=== PATIENT | male | born 1945 | race Caucasian/White ===

== ENCOUNTER → 2017-02-27 | Outpatient (CLI) | payer OTHER ==
[2017-02-28 06:20] LABS: HEPATITIS C VIRUS ANTIBODY 0.1 s/co (0.0-0.9)
== END | disposition home or self-care (01) ==
LOC: CARD 02-25 10:30 → LAB 09:17 → CARD 09:30
PROVIDERS: Family Medicine
DX: I10 Essential (primary) hypertension (principal); R01.1 Cardiac murmur, unspecified; E55.9 Vitamin D deficiency, unspecified; I08.0 Rheumatic disorders of both mitral and aortic valves; I35.0 Nonrheumatic aortic (valve) stenosis; I07.1 Rheumatic tricuspid insufficiency; I51.7 Cardiomegaly

== ENCOUNTER → 2018-01-09 | Outpatient (CLI) | payer OTHER ==
[2018-01-09 16:13] LABS: BASO % 0.3 % (0.0-1.0); EOS # 0.1 10*3/uL (0.0-0.4); EOS % 1.3 % (1.0-4.0); HEMATOCRIT 42.2 % (42.0-52.0); HEMOGLOBIN 14.2 g/dl (14.0-18.0); LYMPH # 1.9 10*3/uL (1.3-4.4); LYMPH % 48.1 % (27.0-41.0); MEAN CELL VOLUME 94.2 fl (80.0-94.0); MEAN CORPUSCULAR HGB 31.7 pg (27.0-31.0); MEAN CORPUSCULAR HGB CONC 33.6 g/dl (33.0-37.0); MONO # 0.1 10*3/uL (0.1-1.0); MONO % 3.4 % (3.0-9.0); NEUT # 1.8 10*3/uL (2.3-7.9); NEUT % 46.4 % (47.0-73.0); PLATELET COUNT AUTOMATED 130 10*3/uL (130-400); RED BLOOD COUNT 4.48 10*6/uL (4.50-5.90); RED CELL DISTRI WIDTH 12.4 % (0-14.5); WHITE BLOOD COUNT 3.9 10*3/uL (4.8-10.8)
[2018-01-09 16:30] LABS: ALBUMIN 3.9 gm/dl (3.1-4.5); ALKALINE PHOSPHATASE 80 U/L (45-117); BILIRUBIN, DIRECT 0.2 mg/dL (0.0-0.2); BUN 16 mg/dl (7-24); CHLORIDE 104 mmol/L (98-107); CHOLESTEROL 161 mg/dL (<200); CREATININE 1.11 mg/dL (0.70-1.30); HDL CHOLESTEROL 50 mg/dl (40-60); LDL CHOLESTEROL 81 mg/dL (9-159); POTASSIUM 4.6 mmol/L (3.5-5.1); SGOT/AST 29 IU/L (3-35); SGPT/ALT 38 U/L (12-78); SODIUM 141 mmol/L (136-145); TOTAL PROTEIN 7.2 gm/dL (6.4-8.2); TRIGLYCERIDES 152 mg/dl (<150); VLDL CHOLESTEROL 30 mg/dL (6-40)
== END | disposition home or self-care (01) ==
LOC: LAB 14:57
PROVIDERS: Family Medicine
DX: E55.9 Vitamin D deficiency, unspecified (principal); I10 Essential (primary) hypertension; E78.00 Pure hypercholesterolemia, unspecified

== ENCOUNTER → 2018-04-11 | Day surgery (SDC) | payer OTHER ==
[~2018-04-11] VITALS: Ht 167.6 cm; Wt 108.9 kg
[~2018-04-11] MED LIST: ATENOLOL50 M1 PO; NORVASC10 MG PO; OMEPRAZOLE D/R20 MG PO; PROSCAR5 M1 PO; PROVENTIL HFA6.7 GM INH; QUINAPRIL40 MG PO; SYMB160 INH; TERAZOSIN HCL10 M1 PO; TYLENOL EXTRA500 MG PO; VERAPAMIL HCL240 MG PO; VITAMIN D32000 UNIT PO
--- NOTE | ~2018-04-11 | O ---
[place], [place] OPERATIVE NOTE NAME: RISSA HEWITT UNIT #: [id number] ROOM: DOCTOR: ISRAEL REYNAGA MD BIRTHDATE: [birth year] DOS: 04/11/2018 GASTROENDOSCOPIC REPORT HISTORY OF PRESENT ILLNESS: This is a 73-year-old patient who presented with dyspepsia as well as colonic screening needs. ALLERGIES: No known medication. FAMILY HISTORY: Noncontributory. PAST SURGICAL HISTORY: Lower back surgery, left hip prosthesis, and cholecystectomy. PAST MEDICAL HISTORY: Sleep apnea, hypertension, and COPD. SOCIAL HISTORY: Nonsmoker, rare alcohol consumer. PROCEDURE: Today's procedure part of investigation is panendoscopy and colonoscopy. PREMEDICATION: Versed and propofol. SCOPE: Olympus forward-viewing gastroscope Q10 video. REPORT: After putting the patient in left lateral position and application of lubricant to the scope, the scope was introduced. Thereafter, under direct visualization, advanced through the length of esophagus without difficulty. Esophagus, cervical, thoracic distally carefully examined. Gastric pouch was entered. Gastritis was noticed. Antral biopsy obtained. Duodenal bulb second and third part within normal limits. Air was suctioned out. The patient was extubated, tolerated the procedure well. IMPRESSION: Gastritis, status post biopsy, awaiting H. pylori results. PLAN AND DISCUSSION: I am going to proceed with colonoscopic evaluation. COLONOSCOPY REPORT Concerned about his colonic screening. Therefore, a colonoscopic assessment is organized. PROCEDURE: Today's procedure part of investigation is colonoscopy plus piecemeal polypectomy. PREMEDICATION: Versed and propofol. SCOPE: Olympus forward-viewing colonoscope 10L video. REPORT: After putting the patient in left lateral position and application of [place], [place] OPERATIVE NOTE NAME: RISSA HEWITT UNIT #: [id number] ROOM: DOCTOR: ISRAEL REYNAGA MD BIRTHDATE: [birth year] lubricant to rectal pouch and digital examination, scope was introduced. Thereafter, under direct visualization, advanced through the length of colon without difficulty. [id number] diverticulosis of sigmoid colon was noticed. Sessile polypoid lesion from hepatic flexure with piecemeal polypectomy was removed. Base of the cecum explored. Appendiceal orifice was photographed. Air was suctioned out. The patient was extubated and tolerated the procedure well. IMPRESSION: 1. Sessile colonic polyp, hepatic flexure, status post piecemeal polypectomy. 2. Diverticulosis, [id number] degree. PLAN: High fiber fruit diet. ACTIVITY: Ad anand. FOLLOWUP: Routinely with you in office, p.r.n. visit with us in [facility]. Follow-up colonoscopy in 10 years unless patient has symptoms for which follow-up should be sooner. Thank you for your kind referral. ISRAEL REYNAGA MD CM:OPRECORD:OPERATIVE NOTE [id number] ISRAEL REYNAGA MD 05/05/18 1756 interface
[2018-04-11 14:00] VITALS: BP 117/84
[2018-04-11 15:45] VITALS: BP 120/69
[2018-04-11 16:00] VITALS: BP 124/74
[2018-04-11 16:15] VITALS: BP 120/87
== END | disposition home or self-care (01) ==
LOC: SDC 04-07 09:30
DX: Z12.11 Encounter for screening for malignant neoplasm of colon (principal); K63.5 Polyp of colon; K57.30 Diverticulosis of large intestine without perforation or abscess without bleeding; K29.70 Gastritis, unspecified, without bleeding; I10 Essential (primary) hypertension; J44.9 Chronic obstructive pulmonary disease, unspecified; G47.33 Obstructive sleep apnea (adult) (pediatric); K21.9 Gastro-esophageal reflux disease without esophagitis; F41.9 Anxiety disorder, unspecified; Z90.49 Acquired absence of other specified parts of digestive tract; Z98.890 Other specified postprocedural states; Z79.899 Other long term (current) drug therapy; Z96.642 Presence of left artificial hip joint

== ENCOUNTER → 2018-11-05 | Outpatient (CLI) | payer OTHER ==
[2018-11-05 15:00] LABS: BASO % 0.3 % (0.0-1.0); EOS % 1.1 % (1.0-4.0); HEMATOCRIT 40.3 % (42.0-52.0); LYMPH # 1.8 10*3/uL (1.3-4.4); LYMPH % 48.9 % (27.0-41.0); MEAN CELL VOLUME 93.9 fl (80.0-94.0); MEAN CORPUSCULAR HGB 32.6 pg (27.0-31.0); MEAN CORPUSCULAR HGB CONC 34.7 g/dl (33.0-37.0); MEAN PLATELET VOLUME 11.1 fl (9.6-12.3); MONO # 0.1 10*3/uL (0.1-1.0); MONO % 3.5 % (3.0-9.0); NEUT # 1.7 10*3/uL (2.3-7.9); NEUT % 45.9 % (47.0-73.0); PLATELET COUNT AUTOMATED 110 10*3/uL (130-400); RED BLOOD COUNT 4.29 10*6/uL (4.50-5.90); RED CELL DISTRI WIDTH 12.8 % (0-14.5); WHITE BLOOD COUNT 3.7 10*3/uL (4.8-10.8)
[2018-11-05 15:21] LABS: ALBUMIN 3.7 gm/dl (3.1-4.5); ALKALINE PHOSPHATASE 60 U/L (45-117); BILIRUBIN, DIRECT 0.2 mg/dL (0.0-0.2); BUN 15 mg/dl (7-24); CHLORIDE 109 mmol/L (98-107); CREATININE 1.03 mg/dL (0.70-1.30); POTASSIUM 4.2 mmol/L (3.5-5.1); SGOT/AST 8 IU/L (3-35); SGPT/ALT 25 U/L (12-78); SODIUM 143 mmol/L (136-145); TOTAL PROTEIN 6.7 gm/dL (6.4-8.2)
== END | disposition home or self-care (01) ==
PROVIDERS: Family Medicine
DX: M48.061 Spinal stenosis, lumbar region without neurogenic claudication (principal); M25.561 Pain in right knee; M25.551 Pain in right hip; M25.461 Effusion, right knee

== ENCOUNTER → 2018-11-19 | Outpatient (CLI) | payer MEDICARE ==
[2018-11-19 15:01] LABS: BASO % 0.2 % (0.0-1.0); EOS # 0.1 10*3/uL (0.0-0.4); EOS % 1.2 % (1.0-4.0); HEMATOCRIT 41.8 % (42.0-52.0); HEMOGLOBIN 14.3 g/dl (14.0-18.0); LYMPH # 1.8 10*3/uL (1.3-4.4); LYMPH % 45.5 % (27.0-41.0); MEAN CORPUSCULAR HGB 32.5 pg (27.0-31.0); MEAN CORPUSCULAR HGB CONC 34.2 g/dl (33.0-37.0); MEAN PLATELET VOLUME 10.6 fl (9.6-12.3); MONO # 0.2 10*3/uL (0.1-1.0); MONO % 4.7 % (3.0-9.0); NEUT # 1.9 10*3/uL (2.3-7.9); NEUT % 47.9 % (47.0-73.0); PLATELET COUNT AUTOMATED 126 10*3/uL (130-400); RED CELL DISTRI WIDTH 12.6 % (0-14.5)
== END | disposition home or self-care (01) ==
LOC: LAB 14:29
PROVIDERS: Family Medicine
DX: D72.829 Elevated white blood cell count, unspecified (principal)

== ENCOUNTER → 2019-03-25 | Outpatient (CLI) | payer MEDICARE ==
[2019-03-25 14:07] LABS: BASO % 0.3 % (0.0-1.0); EOS % 1.1 % (1.0-4.0); HEMATOCRIT 39.9 % (42.0-52.0); HEMOGLOBIN 13.3 g/dl (14.0-18.0); LYMPH # 1.9 10*3/uL (1.3-4.4); LYMPH % 50.4 % (27.0-41.0); MEAN CELL VOLUME 98.8 fl (80.0-94.0); MEAN CORPUSCULAR HGB 32.9 pg (27.0-31.0); MEAN CORPUSCULAR HGB CONC 33.3 g/dl (33.0-37.0); MONO # 0.2 10*3/uL (0.1-1.0); MONO % 4.8 % (3.0-9.0); NEUT # 1.6 10*3/uL (2.3-7.9); NEUT % 43.1 % (47.0-73.0); PLATELET COUNT AUTOMATED 117 10*3/uL (130-400); RED BLOOD COUNT 4.04 10*6/uL (4.50-5.90); RED CELL DISTRI WIDTH 13.2 % (0-14.5); WHITE BLOOD COUNT 3.8 10*3/uL (4.8-10.8)
[2019-03-25 14:28] LABS: ALBUMIN 3.8 gm/dl (3.1-4.5); ALKALINE PHOSPHATASE 68 U/L (45-117); BILIRUBIN, DIRECT 0.2 mg/dL (0.0-0.2); BUN 17 mg/dl (7-24); CHLORIDE 106 mmol/L (98-107); CREATININE 1.21 mg/dL (0.70-1.30); POTASSIUM 4.4 mmol/L (3.5-5.1); SGOT/AST 27 IU/L (3-35); SGPT/ALT 29 U/L (12-78); SODIUM 140 mmol/L (136-145); TOTAL PROTEIN 6.6 gm/dL (6.4-8.2)
== END | disposition home or self-care (01) ==
LOC: LAB 13:30
PROVIDERS: Family Medicine
DX: Z12.5 Encounter for screening for malignant neoplasm of prostate (principal); I10 Essential (primary) hypertension; R73.9 Hyperglycemia, unspecified

== ENCOUNTER → 2019-04-01 | Outpatient (CLI) | payer MEDICARE ==
--- NOTE | ~2019-04-01 | PF ---
[place], [place] PULMONARY FUNCTION TEST [id number] UNIT #: [id number] ROOM: DOCTOR: PATRICK GO MD,WILLA BIRTHDATE: [birth year] DOS: 04/01/2019 PULMONARY FUNCTION TEST ORDERED BY: Dr. Edmundo Perkins. HISTORY: The patient is a 74-year-old male, height of 66 inches, weight of 240 pounds, BMI 38.7 with symptoms of shortness of breath, and nonproductive cough, history of past tobacco use. SPIROMETRY: The patient's FVC 2.67 liters, 73% predicted value. The FEV1 of 2.15 liters as 78% predicted value. The ratio of FEV1/FVC 81% post-bronchodilator. No changes of any significant noted. The flow volume loop suggestive of mild obstructive airway pattern, otherwise normal. The lung volume, thoracic gas volume recorded at 68%, residual volume of 79%, total lung capacity of 72%. The patient's lung diffusion recorded at 72%, mildly decreased without correction of carbon monoxide hemoglobin value. Airway resistance and passive conductance noted mildly abnormal with improvement post-bronchodilator test. 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 Clinical correlation will be advised. WILLA NGUYEN MD CM:PFREPORT:PULMONARY FUNCTION TEST [id number] WILLA GO MD
== END | disposition home or self-care (01) ==
LOC: LAB 12:08
PROVIDERS: Family Medicine
DX: D75.89 Other specified diseases of blood and blood-forming organs (principal); R06.02 Shortness of breath

== ENCOUNTER → 2019-06-08 | Outpatient (CLI) | payer MEDICARE ==
[2019-06-08 11:43] LABS: BASO % 0.5 % (0.0-1.0); HEMATOCRIT 40.7 % (42.0-52.0); HEMOGLOBIN 13.7 g/dl (14.0-18.0); LYMPH # 2.1 10*3/uL (1.3-4.4); MEAN CELL VOLUME 95.1 fl (80.0-94.0); MEAN CORPUSCULAR HGB CONC 33.7 g/dl (33.0-37.0); MEAN PLATELET VOLUME 11.3 fl (9.6-12.3); MONO # 0.2 10*3/uL (0.1-1.0); MONO % 4.1 % (3.0-9.0); NEUT # 1.6 10*3/uL (2.3-7.9); NEUT % 41.1 % (47.0-73.0); PLATELET COUNT AUTOMATED 104 10*3/uL (130-400); RED BLOOD COUNT 4.28 10*6/uL (4.50-5.90); RED CELL DISTRI WIDTH 12.6 % (0-14.5); WHITE BLOOD COUNT 3.9 10*3/uL (4.8-10.8)
[2019-06-08 12:19] LABS: ALBUMIN 3.9 gm/dl (3.1-4.5); ALKALINE PHOSPHATASE 62 U/L (45-117); BUN 15 mg/dl (7-24); CHLORIDE 109 mmol/L (98-107); CREATININE 1.01 mg/dL (0.70-1.30); LDH 226 U/L (87-241); POTASSIUM 4.2 mmol/L (3.5-5.1); SGOT/AST 23 IU/L (3-35); SGPT/ALT 25 U/L (12-78); SODIUM 142 mmol/L (136-145); TOTAL PROTEIN 6.7 gm/dL (6.4-8.2)
== END | disposition home or self-care (01) ==
LOC: LAB 11:09
PROVIDERS: Internal Medicine Hematology & Oncology
DX: C91.40 Hairy cell leukemia not having achieved remission (principal)

== ENCOUNTER → 2019-09-28 | Outpatient (CLI) | payer MEDICARE | END | disposition home or self-care (01) | LOC: US 03:44 | DX: R16.1 Splenomegaly, not elsewhere classified (principal); I10 Essential (primary) hypertension; J44.9 Chronic obstructive pulmonary disease, unspecified; Z90.49 Acquired absence of other specified parts of digestive tract ==

== ENCOUNTER → 2019-10-21 | Outpatient (CLI) | payer MEDICARE ==
[2019-10-21 09:45] LABS: CREATININE 1.18 mg/dL (0.70-1.30)
== END | disposition home or self-care (01) ==
LOC: LAB 01:06 → CT 01:06
PROVIDERS: Radiology Diagnostic Radiology
DX: N20.0 Calculus of kidney (principal); N28.9 Disorder of kidney and ureter, unspecified; Z90.49 Acquired absence of other specified parts of digestive tract

== ENCOUNTER → 2019-12-14 | Outpatient (CLI) | payer MEDICARE ==
[2019-12-14 13:21] LABS: BASO % 0.2 % (0.0-1.0); EOS # 0.1 10*3/uL (0.0-0.4); EOS % 1.4 % (1.0-4.0); HEMATOCRIT 41.9 % (42.0-52.0); HEMOGLOBIN 14.2 g/dl (14.0-18.0); LYMPH # 2.1 10*3/uL (1.3-4.4); LYMPH % 49.9 % (27.0-41.0); MEAN CORPUSCULAR HGB 32.9 pg (27.0-31.0); MEAN CORPUSCULAR HGB CONC 33.9 g/dl (33.0-37.0); MONO # 0.2 10*3/uL (0.1-1.0); MONO % 3.8 % (3.0-9.0); NEUT # 1.9 10*3/uL (2.3-7.9); NEUT % 44.2 % (47.0-73.0); PLATELET COUNT AUTOMATED 116 10*3/uL (130-400); RED BLOOD COUNT 4.32 10*6/uL (4.50-5.90); WHITE BLOOD COUNT 4.2 10*3/uL (4.8-10.8)
[2019-12-14 13:44] LABS: ALKALINE PHOSPHATASE 55 U/L (45-117); BUN 17 mg/dl (7-24); CHLORIDE 110 mmol/L (98-107); CREATININE 1.01 mg/dL (0.70-1.30); LDH 247 U/L (87-241); POTASSIUM 4.5 mmol/L (3.5-5.1); SGOT/AST 21 IU/L (3-35); SGPT/ALT 31 U/L (12-78); SODIUM 143 mmol/L (136-145); TOTAL PROTEIN 6.8 gm/dL (6.4-8.2)
== END | disposition home or self-care (01) ==
LOC: LAB 12:34
PROVIDERS: Internal Medicine Hematology & Oncology
DX: C91.40 Hairy cell leukemia not having achieved remission (principal); D69.6 Thrombocytopenia, unspecified

== ENCOUNTER → 2020-03-31 | Outpatient (CLI) | payer MEDICARE ==
[2020-03-31 12:58] LABS: BASO % 0.2 % (0.0-1.0); EOS # 0.1 10*3/uL (0.0-0.4); EOS % 1.7 % (1.0-4.0); HEMATOCRIT 42.1 % (42.0-52.0); LYMPH # 2.1 10*3/uL (1.3-4.4); LYMPH % 51.6 % (27.0-41.0); MEAN CELL VOLUME 95.9 fl (80.0-94.0); MEAN CORPUSCULAR HGB 32.3 pg (27.0-31.0); MEAN CORPUSCULAR HGB CONC 33.7 g/dl (33.0-37.0); MEAN PLATELET VOLUME 11.1 fl (9.6-12.3); MONO # 0.2 10*3/uL (0.1-1.0); MONO % 4.6 % (3.0-9.0); NEUT # 1.7 10*3/uL (2.3-7.9); NEUT % 41.4 % (47.0-73.0); PLATELET COUNT AUTOMATED 112 10*3/uL (130-400); RED BLOOD COUNT 4.39 10*6/uL (4.50-5.90); WHITE BLOOD COUNT 4.1 10*3/uL (4.8-10.8)
== END | disposition home or self-care (01) ==
LOC: LAB 12:14
PROVIDERS: Internal Medicine Hematology & Oncology
DX: C91.40 Hairy cell leukemia not having achieved remission (principal); D69.6 Thrombocytopenia, unspecified

== ENCOUNTER → 2020-05-16 | Outpatient (CLI) | payer MEDICARE ==
[2020-05-16 11:51] LABS: BASO % 0.5 % (0.0-1.0); EOS # 0.1 10*3/uL (0.0-0.4); EOS % 1.3 % (1.0-4.0); HEMATOCRIT 40.1 % (42.0-52.0); LYMPH % 51.4 % (27.0-41.0); MEAN CELL VOLUME 96.6 fl (80.0-94.0); MEAN CORPUSCULAR HGB 31.8 pg (27.0-31.0); MEAN CORPUSCULAR HGB CONC 32.9 g/dl (33.0-37.0); MONO # 0.2 10*3/uL (0.1-1.0); MONO % 4.3 % (3.0-9.0); NEUT # 1.7 10*3/uL (2.3-7.9); NEUT % 42.2 % (47.0-73.0); PLATELET COUNT AUTOMATED 108 10*3/uL (130-400); RED BLOOD COUNT 4.15 10*6/uL (4.50-5.90); WHITE BLOOD COUNT 3.9 10*3/uL (4.8-10.8)
[2020-05-16 12:14] LABS: ALBUMIN 3.8 gm/dl (3.1-4.5); ALKALINE PHOSPHATASE 59 U/L (45-117); BUN 21 mg/dl (7-24); CHLORIDE 109 mmol/L (98-107); CREATININE 1.21 mg/dL (0.70-1.30); LDH 241 U/L (87-241); POTASSIUM 4.4 mmol/L (3.5-5.1); SGOT/AST 24 IU/L (3-35); SGPT/ALT 31 U/L (12-78); SODIUM 141 mmol/L (136-145); TOTAL PROTEIN 6.6 gm/dL (6.4-8.2)
== END | disposition home or self-care (01) ==
LOC: LAB 11:04
PROVIDERS: Internal Medicine Hematology & Oncology
DX: C91.40 Hairy cell leukemia not having achieved remission (principal); D69.6 Thrombocytopenia, unspecified

== ENCOUNTER → 2020-07-01 | Outpatient (CLI) | payer MEDICARE ==
[2020-07-01 14:33] LABS: ALBUMIN 3.9 gm/dl (3.1-4.5); ALKALINE PHOSPHATASE 58 U/L (45-117); BUN 21 mg/dl (7-24); CHLORIDE 111 mmol/L (98-107); CREATININE 1.02 mg/dL (0.70-1.30); POTASSIUM 4.4 mmol/L (3.5-5.1); SGOT/AST 24 IU/L (3-35); SGPT/ALT 38 U/L (12-78); SODIUM 140 mmol/L (136-145); TOTAL PROTEIN 6.8 gm/dL (6.4-8.2)
== END | disposition home or self-care (01) ==
LOC: LAB 13:45
PROVIDERS: Family Medicine
DX: E83.51 Hypocalcemia (principal)

== ENCOUNTER → 2020-08-12 | Outpatient (CLI) | payer MEDICARE ==
[2020-08-12 13:54] LABS: BASO % 0.2 % (0.0-1.0); EOS # 0.1 10*3/uL (0.0-0.4); EOS % 1.2 % (1.0-4.0); HEMATOCRIT 41.1 % (42.0-52.0); LYMPH % 50.9 % (27.0-41.0); MEAN CELL VOLUME 96.9 fl (80.0-94.0); MEAN CORPUSCULAR HGB 31.6 pg (27.0-31.0); MEAN CORPUSCULAR HGB CONC 32.6 g/dl (33.0-37.0); MONO # 0.2 10*3/uL (0.1-1.0); NEUT # 1.7 10*3/uL (2.3-7.9); NEUT % 42.2 % (47.0-73.0); PLATELET COUNT AUTOMATED 116 10*3/uL (130-400); RED BLOOD COUNT 4.24 10*6/uL (4.50-5.90); RED CELL DISTRI WIDTH 13.2 % (0-14.5)
[2020-08-12 14:23] LABS: ALBUMIN 3.9 gm/dl (3.1-4.5); ALKALINE PHOSPHATASE 59 U/L (45-117); BILIRUBIN, DIRECT 0.2 mg/dL (0.0-0.2); BUN 18 mg/dl (7-24); CHLORIDE 111 mmol/L (98-107); CREATININE 1.12 mg/dL (0.70-1.30); POTASSIUM 4.6 mmol/L (3.5-5.1); SGOT/AST 26 IU/L (3-35); SGPT/ALT 34 U/L (12-78); SODIUM 141 mmol/L (136-145); TOTAL PROTEIN 6.8 gm/dL (6.4-8.2)
== END | disposition home or self-care (01) ==
LOC: LAB 13:20
PROVIDERS: ATTEND Family Medicine
DX: M43.16 Spondylolisthesis, lumbar region (principal); I10 Essential (primary) hypertension; E55.9 Vitamin D deficiency, unspecified; Z98.890 Other specified postprocedural states

== ENCOUNTER → 2020-11-14 | Outpatient (CLI) | payer MEDICARE ==
[2020-11-14 14:21] LABS: BASO % 0.2 % (0.0-1.0); HEMATOCRIT 41.9 % (42.0-52.0); LYMPH # 1.9 10*3/uL (1.3-4.4); LYMPH % 44.6 % (27.0-41.0); MEAN CELL VOLUME 95.4 fl (80.0-94.0); MEAN CORPUSCULAR HGB 32.1 pg (27.0-31.0); MEAN CORPUSCULAR HGB CONC 33.7 g/dl (33.0-37.0); MONO # 0.2 10*3/uL (0.1-1.0); MONO % 4.3 % (3.0-9.0); NEUT # 2.1 10*3/uL (2.3-7.9); NEUT % 49.4 % (47.0-73.0); PLATELET COUNT AUTOMATED 125 10*3/uL (130-400); RED BLOOD COUNT 4.39 10*6/uL (4.50-5.90); WHITE BLOOD COUNT 4.2 10*3/uL (4.8-10.8)
[2020-11-14 14:39] LABS: ALBUMIN 3.9 gm/dl (3.1-4.5); ALKALINE PHOSPHATASE 60 U/L (45-117); BUN 23 mg/dl (7-24); CHLORIDE 110 mmol/L (98-107); CREATININE 1.04 mg/dL (0.70-1.30); LDH 259 U/L (87-241); POTASSIUM 4.6 mmol/L (3.5-5.1); SGOT/AST 23 IU/L (3-35); SGPT/ALT 30 U/L (12-78); SODIUM 143 mmol/L (136-145); TOTAL PROTEIN 6.8 gm/dL (6.4-8.2)
== END | disposition home or self-care (01) ==
LOC: LAB 13:43
PROVIDERS: ATTEND Internal Medicine Hematology & Oncology
DX: C91.40 Hairy cell leukemia not having achieved remission (principal); D69.6 Thrombocytopenia, unspecified

== ENCOUNTER → 2021-01-13 | Outpatient (CLI) | payer MEDICARE | END | disposition home or self-care (01) | LOC: RESCLI 06:49 | PROVIDERS: ATTEND Internal Medicine | DX: I10 Essential (primary) hypertension (principal); R00.1 Bradycardia, unspecified; I45.10 Unspecified right bundle-branch block; E78.5 Hyperlipidemia, unspecified; N40.0 Benign prostatic hyperplasia without lower urinary tract symptoms; K21.9 Gastro-esophageal reflux disease without esophagitis; J44.9 Chronic obstructive pulmonary disease, unspecified; C91.41 Hairy cell leukemia, in remission; E55.9 Vitamin D deficiency, unspecified; R42 Dizziness and giddiness; R60.0 Localized edema; R01.1 Cardiac murmur, unspecified; Z79.899 Other long term (current) drug therapy ==

== ENCOUNTER → 2021-01-23 | Outpatient (CLI) | payer MEDICARE ==
[2021-01-23 14:45] LABS: BASO % 0.3 % (0.0-1.0); EOS # 0.1 10*3/uL (0.0-0.4); EOS % 1.6 % (1.0-4.0); HEMATOCRIT 41.6 % (42.0-52.0); LYMPH # 1.8 10*3/uL (1.3-4.4); LYMPH % 48.3 % (27.0-41.0); MEAN CELL VOLUME 95.9 fl (80.0-94.0); MEAN CORPUSCULAR HGB CONC 33.4 g/dl (33.0-37.0); MEAN PLATELET VOLUME 10.5 fl (9.6-12.3); MONO # 0.2 10*3/uL (0.1-1.0); MONO % 4.7 % (3.0-9.0); NEUT # 1.7 10*3/uL (2.3-7.9); NEUT % 44.6 % (47.0-73.0); PLATELET COUNT AUTOMATED 118 10*3/uL (130-400); RED BLOOD COUNT 4.34 10*6/uL (4.50-5.90); RED CELL DISTRI WIDTH 13.1 % (0-14.5); WHITE BLOOD COUNT 3.8 10*3/uL (4.8-10.8)
[2021-01-23 15:15] LABS: ALBUMIN 3.9 gm/dl (3.1-4.5); ALKALINE PHOSPHATASE 59 U/L (45-117); BUN 17 mg/dl (7-24); CHLORIDE 108 mmol/L (98-107); CHOLESTEROL 174 mg/dL (<200); CREATININE 1.08 mg/dL (0.70-1.30); HDL CHOLESTEROL 65 mg/dl (40-60); LDL CHOLESTEROL 89 mg/dL (9-159); POTASSIUM 4.5 mmol/L (3.5-5.1); SGOT/AST 26 IU/L (3-35); SGPT/ALT 37 U/L (12-78); SODIUM 142 mmol/L (136-145); TOTAL PROTEIN 6.9 gm/dL (6.4-8.2); TRIGLYCERIDES 99 mg/dl (<150); VLDL CHOLESTEROL 20 mg/dL (6-40)
== END | disposition home or self-care (01) ==
LOC: LAB 14:22
PROVIDERS: Internal Medicine; ATTEND Internal Medicine Nephrology
DX: I10 Essential (primary) hypertension (principal); E78.5 Hyperlipidemia, unspecified; E55.9 Vitamin D deficiency, unspecified

== ENCOUNTER → 2021-01-24 | Outpatient (CLI) | payer MEDICARE | END | disposition home or self-care (01) | LOC: CARD 01:08 | PROVIDERS: ATTEND Internal Medicine | DX: R00.1 Bradycardia, unspecified (principal); I10 Essential (primary) hypertension; R60.0 Localized edema ==

== ENCOUNTER → 2021-02-17 | Outpatient (CLI) | payer MEDICARE | END | disposition home or self-care (01) | LOC: RESCLI 00:58 | PROVIDERS: ATTEND Family Medicine | DX: I10 Essential (primary) hypertension (principal); E78.5 Hyperlipidemia, unspecified; N40.0 Benign prostatic hyperplasia without lower urinary tract symptoms; K21.9 Gastro-esophageal reflux disease without esophagitis; J44.9 Chronic obstructive pulmonary disease, unspecified; C91.41 Hairy cell leukemia, in remission; E55.9 Vitamin D deficiency, unspecified; R42 Dizziness and giddiness; R60.0 Localized edema; R01.1 Cardiac murmur, unspecified; M15.9 Polyosteoarthritis, unspecified; Z79.899 Other long term (current) drug therapy; Z90.49 Acquired absence of other specified parts of digestive tract; Z98.890 Other specified postprocedural states ==

== ENCOUNTER → 2021-08-11 | Outpatient (CLI) | payer MEDICARE | END | disposition home or self-care (01) | LOC: RAD 12:41 | PROVIDERS: ATTEND Chiropractor | DX: M43.07 Spondylolysis, lumbosacral region (principal); M51.37 Other intervertebral disc degeneration, lumbosacral region; M43.26 Fusion of spine, lumbar region ==

== ENCOUNTER 2021-08-20 19:23 | Emergency (ER) | payer MEDICARE ==
[2021-08-20 20:42] LABS: BASO % 0.2 % (0.0-1.0); EOS % 0.2 % (1.0-4.0); HEMATOCRIT 40.2 % (42.0-52.0); LYMPH # 1.2 10*3/uL (1.3-4.4); LYMPH % 26.5 % (27.0-41.0); MEAN CELL VOLUME 96.4 fl (80.0-94.0); MEAN CORPUSCULAR HGB 31.9 pg (27.0-31.0); MEAN CORPUSCULAR HGB CONC 33.1 g/dl (33.0-37.0); MEAN PLATELET VOLUME 11.6 fl (9.6-12.3); MONO # 0.3 10*3/uL (0.1-1.0); MONO % 6.5 % (3.0-9.0); NEUT % 66.2 % (47.0-73.0); PLATELET COUNT AUTOMATED 107 10*3/uL (130-400); RED BLOOD COUNT 4.17 10*6/uL (4.50-5.90); RED CELL DISTRI WIDTH 13.2 % (0-14.5); WHITE BLOOD COUNT 4.5 10*3/uL (4.8-10.8)
[2021-08-20 20:52] LABS: ACT PARTIAL THROMBO TIME 26.4 SECONDS (20.0-32.1); INTERNATIONAL NORM RATIO 1.1 (2.0-3.5)
[2021-08-20 20:58] LABS: ALBUMIN 3.9 gm/dl (3.1-4.5); ALKALINE PHOSPHATASE 71 U/L (45-117); BUN 7 mg/dl (7-24); CHLORIDE 107 mmol/L (98-107); CPK 321 U/L (39-308); CREATININE 0.92 mg/dL (0.70-1.30); POTASSIUM 3.7 mmol/L (3.5-5.1); SGOT/AST 29 IU/L (3-35); SGPT/ALT 34 U/L (12-78); SODIUM 139 mmol/L (136-145); TOTAL PROTEIN 6.8 gm/dL (6.4-8.2)
[2021-08-20 21:03] LABS: CKMB 5.3 ng/ml (0.5-3.6)
[2021-08-20 21:10] LABS: BILIRUBIN Negative (Negative); BLOOD 1+ (Negative); CLARITY Clear (Clear); COLOR Yellow (Yellow); GLUCOSE Negative (Negative); KETONE Trace (Negative); LEUKO ESTERASE Negative (Negative); NITRITE Negative (Negative); SPECIFIC GRAVITY <= 1.005 (1.001-1.030)
[2021-08-20 21:18] LABS: BACTERIA 1+; EPITHELIAL CELLS 0-2; WBC 0-2 wbc/hpf (0-5)
[2021-08-20 21:19] LABS: MUCOUS TRACE
== END 2021-08-20 23:21 | disposition short-term general hospital (02) ==
LOC: ED 19:23
PROVIDERS: Emergency Medicine
DX: I62.9 Nontraumatic intracranial hemorrhage, unspecified (principal)

== ENCOUNTER → 2021-12-12 | Outpatient (CLI) | payer MEDICARE ==
[2021-12-12 13:55] LABS: BASO % 0.4 % (0.0-1.0); EOS % 0.4 % (1.0-4.0); HEMATOCRIT 40.6 % (42.0-52.0); LYMPH # 1.2 10*3/uL (1.3-4.4); LYMPH % 43.7 % (27.0-41.0); MEAN CELL VOLUME 94.2 fl (80.0-94.0); MEAN PLATELET VOLUME 10.3 fl (9.6-12.3); MONO # 0.2 10*3/uL (0.1-1.0); MONO % 5.4 % (3.0-9.0); NEUT # 1.4 10*3/uL (2.3-7.9); NEUT % 49.4 % (47.0-73.0); PLATELET COUNT AUTOMATED 116 10*3/uL (130-400); RED BLOOD COUNT 4.31 10*6/uL (4.50-5.90); RED CELL DISTRI WIDTH 13.3 % (0-14.5); WHITE BLOOD COUNT 2.8 10*3/uL (4.8-10.8)
[2021-12-12 14:21] LABS: ALBUMIN 3.7 gm/dl (3.1-4.5); BUN 16 mg/dl (7-24); CHLORIDE 109 mmol/L (98-107); CREATININE 0.86 mg/dL (0.70-1.30); POTASSIUM 4.2 mmol/L (3.5-5.1); SGOT/AST 31 IU/L (3-35); SGPT/ALT 36 U/L (12-78); SODIUM 141 mmol/L (136-145); TOTAL PROTEIN 6.7 gm/dL (6.4-8.2)
[2021-12-12 14:36] LABS: ALKALINE PHOSPHATASE 76 U/L (45-117)
== END | disposition home or self-care (01) ==
LOC: LAB 13:40
PROVIDERS: ATTEND Internal Medicine Hematology & Oncology
DX: C91.40 Hairy cell leukemia not having achieved remission (principal); D69.6 Thrombocytopenia, unspecified

== ENCOUNTER → 2022-07-17 | Outpatient (CLI) | payer MEDICARE ==
[2022-07-17 12:59] LABS: BASO % 0.3 % (0.0-1.0); EOS % 0.9 % (1.0-4.0); LYMPH # 1.7 10*3/uL (1.3-4.4); LYMPH % 47.7 % (27.0-41.0); MEAN CELL VOLUME 97.7 fl (80.0-94.0); MEAN CORPUSCULAR HGB 32.6 pg (27.0-31.0); MEAN CORPUSCULAR HGB CONC 33.4 g/dl (33.0-37.0); MEAN PLATELET VOLUME 10.9 fl (9.6-12.3); MONO # 0.2 10*3/uL (0.1-1.0); NEUT # 1.6 10*3/uL (2.3-7.9); NEUT % 44.8 % (47.0-73.0); PLATELET COUNT AUTOMATED 96 10*3/uL (130-400); RED BLOOD COUNT 3.89 10*6/uL (4.50-5.90); RED CELL DISTRI WIDTH 13.1 % (0-14.5); WHITE BLOOD COUNT 3.5 10*3/uL (4.8-10.8)
== END | disposition home or self-care (01) ==
LOC: LAB 12:27
PROVIDERS: ATTEND Internal Medicine Hematology & Oncology
DX: C91.40 Hairy cell leukemia not having achieved remission (principal); D69.6 Thrombocytopenia, unspecified

== ENCOUNTER → 2022-08-08 | Outpatient (CLI) | payer MEDICARE ==
[2022-08-08 13:09] LABS: EOS % 0.9 % (1.0-4.0); HEMATOCRIT 39.2 % (42.0-52.0); LYMPH # 1.8 10*3/uL (1.3-4.4); LYMPH % 54.3 % (27.0-41.0); MEAN CORPUSCULAR HGB 33.2 pg (27.0-31.0); MEAN CORPUSCULAR HGB CONC 34.2 g/dl (33.0-37.0); MEAN PLATELET VOLUME 11.1 fl (9.6-12.3); MONO # 0.2 10*3/uL (0.1-1.0); MONO % 4.6 % (3.0-9.0); NEUT # 1.3 10*3/uL (2.3-7.9); NEUT % 39.9 % (47.0-73.0); PLATELET COUNT AUTOMATED 106 10*3/uL (130-400); RED BLOOD COUNT 4.04 10*6/uL (4.50-5.90); RED CELL DISTRI WIDTH 12.8 % (0-14.5); WHITE BLOOD COUNT 3.2 10*3/uL (4.8-10.8)
[2022-08-08 13:24] LABS: ALKALINE PHOSPHATASE 60 U/L (45-117); BUN 14 mg/dl (7-24); CHLORIDE 111 mmol/L (98-107); CREATININE 1.01 mg/dL (0.70-1.30); POTASSIUM 4.3 mmol/L (3.5-5.1); SGOT/AST 22 IU/L (3-35); SGPT/ALT 26 U/L (12-78); SODIUM 143 mmol/L (136-145); THYROXINE (T4) TOTAL 7.3 ug/dl (4.5-12.1); TOTAL PROTEIN 6.6 gm/dL (6.4-8.2)
== END | disposition home or self-care (01) ==
LOC: LAB 12:48
PROVIDERS: ATTEND Family Medicine
DX: Z12.5 Encounter for screening for malignant neoplasm of prostate (principal); R53.83 Other fatigue; E55.9 Vitamin D deficiency, unspecified; I10 Essential (primary) hypertension; C91.40 Hairy cell leukemia not having achieved remission

== ENCOUNTER → 2023-01-16 | Outpatient (CLI) | payer MEDICARE ==
[2023-01-16 16:22] LABS: BASO % 0.3 % (0.0-1.0); EOS % 0.6 % (1.0-4.0); HEMATOCRIT 40.6 % (42.0-52.0); LYMPH # 1.7 10*3/uL (1.3-4.4); LYMPH % 53.2 % (27.0-41.0); MEAN CELL VOLUME 97.4 fl (80.0-94.0); MEAN CORPUSCULAR HGB 32.6 pg (27.0-31.0); MEAN CORPUSCULAR HGB CONC 33.5 g/dl (33.0-37.0); MONO # 0.2 10*3/uL (0.1-1.0); MONO % 6.3 % (3.0-9.0); NEUT # 1.2 10*3/uL (2.3-7.9); PLATELET COUNT AUTOMATED 96 10*3/uL (130-400); RED BLOOD COUNT 4.17 10*6/uL (4.50-5.90); RED CELL DISTRI WIDTH 13.5 % (0-14.5); WHITE BLOOD COUNT 3.2 10*3/uL (4.8-10.8)
[2023-01-16 16:36] LABS: ALKALINE PHOSPHATASE 62 U/L (46-116); BUN 15 mg/dl (9-23); CHLORIDE 107 mmol/L (98-107); LDH 251 U/L (120-246); POTASSIUM 4.5 mmol/L (3.4-5.1); SGPT/ALT 30 U/L (10-49); TOTAL PROTEIN 6.3 gm/dL (6.0-8.0)
== END | disposition home or self-care (01) ==
LOC: LAB 15:39
PROVIDERS: ATTEND Internal Medicine Hematology & Oncology
DX: C91.40 Hairy cell leukemia not having achieved remission (principal); D69.6 Thrombocytopenia, unspecified

== ENCOUNTER → 2023-03-14 | Outpatient (CLI) | payer MEDICARE | END | disposition home or self-care (01) | LOC: RAD 11:46 | PROVIDERS: ATTEND Family Medicine | DX: I51.7 Cardiomegaly (principal); R05.9 Cough, unspecified; M19.011 Primary osteoarthritis, right shoulder; M19.012 Primary osteoarthritis, left shoulder; Z86.16 Personal history of COVID-19 ==

== ENCOUNTER → 2023-07-09 | Outpatient (CLI) | payer MEDICARE ==
[2023-07-09 13:13] LABS: EOS % 0.9 % (1.0-4.0); HEMATOCRIT 38.4 % (42.0-52.0); LYMPH # 1.8 10*3/uL (1.3-4.4); LYMPH % 54.2 % (27.0-41.0); MEAN CORPUSCULAR HGB 33.4 pg (27.0-31.0); MEAN CORPUSCULAR HGB CONC 34.1 g/dl (33.0-37.0); MEAN PLATELET VOLUME 11.1 fl (9.6-12.3); MONO # 0.2 10*3/uL (0.1-1.0); NEUT # 1.2 10*3/uL (2.3-7.9); NEUT % 37.6 % (47.0-73.0); PLATELET COUNT AUTOMATED 93 10*3/uL (130-400); RED BLOOD COUNT 3.92 10*6/uL (4.50-5.90); RED CELL DISTRI WIDTH 13.6 % (0-14.5); WHITE BLOOD COUNT 3.3 10*3/uL (4.8-10.8)
== END | disposition home or self-care (01) ==
LOC: LAB 12:47
PROVIDERS: ATTEND Internal Medicine Hematology & Oncology
DX: C91.40 Hairy cell leukemia not having achieved remission (principal); D69.6 Thrombocytopenia, unspecified

== ENCOUNTER → 2023-08-13 | Outpatient (CLI) | payer MEDICARE ==
[2023-08-13 16:03] LABS: BASO % 0.4 % (0.0-1.0); EOS % 0.8 % (1.0-4.0); HEMATOCRIT 39.1 % (42.0-52.0); LYMPH # 1.2 10*3/uL (1.3-4.4); LYMPH % 46.4 % (27.0-41.0); MEAN CELL VOLUME 98.7 fl (80.0-94.0); MEAN CORPUSCULAR HGB 33.1 pg (27.0-31.0); MEAN CORPUSCULAR HGB CONC 33.5 g/dl (33.0-37.0); MEAN PLATELET VOLUME 11.1 fl (9.6-12.3); MONO # 0.2 10*3/uL (0.1-1.0); MONO % 6.7 % (3.0-9.0); NEUT # 1.1 10*3/uL (2.3-7.9); NEUT % 45.3 % (47.0-73.0); PLATELET COUNT AUTOMATED 101 10*3/uL (130-400); RED BLOOD COUNT 3.96 10*6/uL (4.50-5.90); RED CELL DISTRI WIDTH 13.2 % (0-14.5); WHITE BLOOD COUNT 2.5 10*3/uL (4.8-10.8)
[2023-08-13 16:26] LABS: ALKALINE PHOSPHATASE 72 U/L (46-116); BUN 10 mg/dl (9-23); CHLORIDE 108 mmol/L (98-107); CHOLESTEROL 149 mg/dL (<200); LDL CHOLESTEROL 77 mg/dL (9-159); POTASSIUM 4.6 mmol/L (3.4-5.1); SGPT/ALT 24 U/L (10-49); THYROXINE (T4) TOTAL 6.3 ug/dl (4.5-10.9); TOTAL PROTEIN 6.5 gm/dL (6.0-8.0); TRIGLYCERIDES 81 mg/dl (<150)
== END ==
LOC: LAB 15:35
PROVIDERS: ATTEND Family Medicine
DX: Z12.5 Encounter for screening for malignant neoplasm of prostate (principal); C91.40 Hairy cell leukemia not having achieved remission; E78.5 Hyperlipidemia, unspecified; R35.1 Nocturia; I10 Essential (primary) hypertension

== ENCOUNTER → 2023-09-16 | Outpatient (CLI) | payer MEDICARE | END | disposition home or self-care (01) | LOC: RAD 13:45 | PROVIDERS: ATTEND Family Medicine | DX: M47.812 Spondylosis without myelopathy or radiculopathy, cervical region (principal); M48.02 Spinal stenosis, cervical region; M17.11 Unilateral primary osteoarthritis, right knee ==

== ENCOUNTER → 2024-06-19 | Outpatient (CLI) | payer MEDICARE ==
[2024-06-19 14:41] LABS: MEAN CELL VOLUME 97.7 fl (80.0-94.0); MEAN CORPUSCULAR HGB 33.7 pg (27.0-31.0); MEAN CORPUSCULAR HGB CONC 34.5 g/dl (33.0-37.0); MEAN PLATELET VOLUME 11.1 fl (9.6-12.3); PLATELET COUNT AUTOMATED 86 10*3/uL (130-400); RED BLOOD COUNT 3.89 10*6/uL (4.50-5.90); WHITE BLOOD COUNT 2.8 10*3/uL (4.8-10.8)
[2024-06-19 15:03] LABS: MANUAL DIFF REFLEX YES
[2024-06-19 15:06] LABS: PLATELET SUFFICIENCY LOW (NORMAL); TOTAL CELLS COUNTED 100 #CELLS
== END | disposition home or self-care (01) ==
LOC: LAB 14:14
PROVIDERS: ATTEND Internal Medicine Hematology & Oncology
DX: C91.40 Hairy cell leukemia not having achieved remission (principal); D69.6 Thrombocytopenia, unspecified

== ENCOUNTER → 2024-12-07 | Outpatient (CLI) | payer MEDICARE ==
[2024-12-07 13:26] LABS: BASO % 0.3 % (0.0-1.0); EOS % 0.5 % (1.0-4.0); HEMATOCRIT 41.8 % (42.0-52.0); MEAN CELL VOLUME 96.3 fl (80.0-94.0); MEAN CORPUSCULAR HGB 32.3 pg (27.0-31.0); MEAN CORPUSCULAR HGB CONC 33.5 g/dl (33.0-37.0); MEAN PLATELET VOLUME 10.8 fl (9.6-12.3); MONO # 0.3 10*3/uL (0.1-1.0); NEUT # 1.7 10*3/uL (2.3-7.9); NEUT % 46.4 % (47.0-73.0); PLATELET COUNT AUTOMATED 93 10*3/uL (130-400); RED BLOOD COUNT 4.34 10*6/uL (4.50-5.90); RED CELL DISTRI WIDTH 12.4 % (0-14.5); WHITE BLOOD COUNT 3.7 10*3/uL (4.8-10.8)
[2024-12-07 13:49] LABS: ALKALINE PHOSPHATASE 69 U/L (46-116); BUN 12 mg/dl (9-23); CHLORIDE 104 mmol/L (98-107); POTASSIUM 3.8 mmol/L (3.4-5.1); SGPT/ALT 30 U/L (5-49); THYROXINE (T4) TOTAL 6.5 ug/dl (4.5-10.9); TOTAL PROTEIN 6.5 gm/dL (6.0-8.0)
== END | disposition home or self-care (01) ==
LOC: LAB 13:00
PROVIDERS: ATTEND Family Medicine
DX: R61 Generalized hyperhidrosis (principal)

== ENCOUNTER → 2024-12-28 | Outpatient (CLI) | payer MEDICARE | END | disposition home or self-care (01) | LOC: RAD 13:24 | PROVIDERS: ATTEND Family Medicine | DX: J98.4 Other disorders of lung (principal); M19.012 Primary osteoarthritis, left shoulder; M19.011 Primary osteoarthritis, right shoulder; M47.814 Spondylosis without myelopathy or radiculopathy, thoracic region ==

== ENCOUNTER → 2025-01-11 | Outpatient (CLI) | payer MEDICARE ==
[2025-01-11 15:00] LABS: HEMATOCRIT 39.9 % (42.0-52.0); MEAN CELL VOLUME 96.6 fl (80.0-94.0); MEAN CORPUSCULAR HGB 32.2 pg (27.0-31.0); MEAN CORPUSCULAR HGB CONC 33.3 g/dl (33.0-37.0); MEAN PLATELET VOLUME 11.3 fl (9.6-12.3); PLATELET COUNT AUTOMATED 86 10*3/uL (130-400); RED BLOOD COUNT 4.13 10*6/uL (4.50-5.90); RED CELL DISTRI WIDTH 13.2 % (0-14.5); WHITE BLOOD COUNT 2.9 10*3/uL (4.8-10.8)
[2025-01-11 15:09] LABS: MANUAL DIFF REFLEX YES
[2025-01-11 15:33] LABS: ALKALINE PHOSPHATASE 73 U/L (46-116); BUN 17 mg/dl (9-23); CHLORIDE 104 mmol/L (98-107); POTASSIUM 4.4 mmol/L (3.4-5.1); SGPT/ALT 31 U/L (5-49); TOTAL PROTEIN 6.6 gm/dL (6.0-8.0)
[2025-01-11 15:37] LABS: ATYPICAL LYMPHS 4 % (0-0); BURR CELLS FEW; PLATELET SUFFICIENCY LOW (NORMAL); POLYCHROMASIA SLIGHT; TARGET CELLS FEW; TOTAL CELLS COUNTED 100 #CELLS
[2025-01-13 07:06] LABS: BETA-2 MICROGLOBULIN 1.8 mg/L (0.6-2.4)
== END | disposition home or self-care (01) ==
LOC: LAB 14:21
PROVIDERS: ATTEND Internal Medicine Hematology & Oncology
DX: C91.40 Hairy cell leukemia not having achieved remission (principal); D64.9 Anemia, unspecified

== ENCOUNTER 2025-03-08 20:42 | Emergency (ER) | payer MEDICARE ==
[~2025-03-08] VITALS: Ht 167.6 cm; Wt 95.3 kg
[2025-03-08] MEDS ORDERED: Bacitracin Zinc 14 GM TUBE T ONE ×2 (21:00→23:45)
[2025-03-08] MEDS ORDERED: Acetaminophen/Hydrocodone 5 MG/325 MG TABLET PO ONE (23:35)
[2025-03-08] MEDS ORDERED: Ondansetron Hydrochloride 4 MG TAB SL ONE (23:35)
[2025-03-08] MEDS ORDERED: DERMABOND 1 EA APPL T ONE (23:53)
== END 2025-03-09 00:01 | disposition home or self-care (01) ==
LOC: ED 20:42
DX: S05.31XA Ocular laceration without prolapse or loss of intraocular tissue, right eye, initial encounter (principal); S60.221A Contusion of right hand, initial encounter; S80.211A Abrasion, right knee, initial encounter; I10 Essential (primary) hypertension; F41.9 Anxiety disorder, unspecified; Z79.899 Other long term (current) drug therapy; Z98.890 Other specified postprocedural states; W18.39XA Other fall on same level, initial encounter; Y93.89 Activity, other specified; Y92.89 Other specified places as the place of occurrence of the external cause; Y99.8 Other external cause status

== ENCOUNTER 2025-05-18 11:28 | Emergency (ER) | payer MEDICARE ==
[~2025-05-18] VITALS: Ht 167.6 cm; Wt 95.3 kg
[2025-05-18] MEDS ORDERED: ASPIRIN 325 MG TAB PO ONE (12:05)
[2025-05-18 12:36] LABS: BASO # 0.0 10*3/uL (0.0-0.1); BASO % 0.2 % (0.0-1.0); EOS # 0.0 10*3/uL (0.0-0.4); EOS % 0.2 % (1.0-4.0); MEAN CELL VOLUME 93.4 fl (80.0-94.0); MEAN CORPUSCULAR HGB 32.1 pg (27.0-31.0); MEAN PLATELET VOLUME 10.3 fl (9.6-12.3); MONO # 0.6 10*3/uL (0.1-1.0); MONO % 13.5 % (3.0-9.0); NEUT # 2.4 10*3/uL (2.3-7.9); NEUT % 57.4 % (47.0-73.0); NUCLEATED RED BLOOD CELL 0.0 % (0.0-0.0); NUCLEATED RED BLOOD CELL 0.0 10*3/uL (0.0-0.0); PLATELET COUNT AUTOMATED 123 10*3/uL (130-400); RED CELL DISTRI WIDTH 13.2 % (0-14.5)
[2025-05-18 13:04] LABS: BUN 17 mg/dl (9-23)
[2025-05-18] MEDS ORDERED: PREDNISONE20 M1 PO (15:14)
== END 2025-05-18 17:12 | disposition home or self-care (01) ==
LOC: ED 11:28
PROVIDERS: Nurse Practitioner Family
DX: J44.9 Chronic obstructive pulmonary disease, unspecified (principal); B34.9 Viral infection, unspecified; Z79.899 Other long term (current) drug therapy; Z90.49 Acquired absence of other specified parts of digestive tract; Z98.890 Other specified postprocedural states

== ENCOUNTER 2025-05-23 17:45 | Emergency (ER) | payer MEDICARE ==
[~2025-05-23] VITALS: Wt 95.3 kg
[~2025-05-23 17:45] MED LIST changes: +PREDNISONE20 M1 PO
[2025-05-23 18:35] LABS: MEAN CELL VOLUME 92.5 fl (80.0-94.0); MEAN CORPUSCULAR HGB 31.0 pg (27.0-31.0); MEAN PLATELET VOLUME 10.3 fl (9.6-12.3); NUCLEATED RED BLOOD CELL 0.0 % (0.0-0.0); NUCLEATED RED BLOOD CELL 0.0 10*3/uL (0.0-0.0); PLATELET COUNT AUTOMATED 163 10*3/uL (130-400); RED CELL DISTRI WIDTH 13.3 % (0-14.5)
[2025-05-23 18:40] LABS: MANUAL DIFF REFLEX YES
[2025-05-23 18:57] LABS: BUN 19 mg/dl (9-23); SGPT/ALT 84 U/L (5-49)
[2025-05-23] MEDS ORDERED: FUROSEMIDE 40 MG/4 ML VIAL IV ONE (19:10)
[2025-05-23] MEDS ORDERED: POTASSIUM CHLORIDE 20 MEQ TAB PO ONE (19:15)
[2025-05-23] MEDS ORDERED: ACETAMINOPHEN 325 MG TAB PO ONE (19:35)
[2025-05-23 19:47] LABS: PLATELET SUFFICIENCY NORMAL (NORMAL)
[2025-05-23 20:14] LABS: BILIRUBIN Negative (Negative); BLOOD Trace-Lysed (Negative); CLARITY Clear (Clear); COLOR Yellow (Yellow); KETONE Negative (Negative); LEUKO ESTERASE Negative (Negative); NITRITE Negative (Negative); PH 6.5 (4.5-8.0); SPECIFIC GRAVITY 1.010 (1.001-1.030); UROBILINOGEN 1.0 E.U./dl (0.0-1.0)
[2025-05-23 20:29] LABS: MUCOUS 1+
[2025-05-23] MEDS ORDERED: AZITHROMYCIN 250 ML IV ONE (20:30)
[2025-05-23] MEDS ORDERED: HEPARIN SODIUM 250 ML IV SCH (21:00)
[2025-05-23] MEDS ORDERED: LEVETIRACETAM500 MG PO (21:09)
[2025-05-23] MEDS ORDERED: ASPIRIN81 M1 PO (21:10)
[2025-05-23] MEDS ORDERED: LASIX20 MG PO (21:10)
[2025-05-23] MEDS ORDERED: ZOCOR10 MG PO (21:11)
[2025-05-23] MEDS ORDERED: LISINOPRIL40 MG PO (21:13)
[2025-05-23] MEDS ORDERED: ANTIVERT25 M2 PO (21:14)
[2025-05-23] MEDS ORDERED: Amiodarone Hydrochloride 150 MG,IV 1 EA in DEXTROSE 5% 100 ML IV ONE (21:25)
[2025-05-23] MEDS ORDERED: Amiodarone Hydrochloride 900 MG in DEXTROSE 5% 500 ML IV SCH (21:40)
[2025-05-28 15:07] LABS: ORGANISM ID Final report (.)
== END 2025-05-24 05:05 | disposition short-term general hospital (02) ==
LOC: ED 17:45
PROVIDERS: Nurse Practitioner Family
DX: I21.4 Non-ST elevation (NSTEMI) myocardial infarction (principal); I48.91 Unspecified atrial fibrillation; R00.0 Tachycardia, unspecified; E87.6 Hypokalemia; J44.9 Chronic obstructive pulmonary disease, unspecified; I10 Essential (primary) hypertension; K21.9 Gastro-esophageal reflux disease without esophagitis; F41.9 Anxiety disorder, unspecified; Z79.899 Other long term (current) drug therapy; Z79.82 Long term (current) use of aspirin; Z90.49 Acquired absence of other specified parts of digestive tract; Z98.890 Other specified postprocedural states

== ENCOUNTER 2025-08-08 21:25 | Emergency (ER) | payer MEDICARE ==
[~2025-08-08] VITALS: Wt 90.7 kg
[~2025-08-08 21:25] MED LIST changes: +ANTIVERT25 M2 PO; +ASPIRIN81 M1 PO; +LASIX20 MG PO; +LEVETIRACETAM500 MG PO; +LISINOPRIL40 MG PO; +ZOCOR10 MG PO
[2025-08-08 21:54] LABS: BASO # 0.0 10*3/uL (0.0-0.1); BASO % 0.2 % (0.0-1.0); EOS # 0.0 10*3/uL (0.0-0.4); EOS % 0.2 % (1.0-4.0); MEAN CELL VOLUME 100.4 fl (80.0-94.0); MEAN CORPUSCULAR HGB 33.5 pg (27.0-31.0); MEAN PLATELET VOLUME 12.1 fl (9.6-12.3); MONO # 0.4 10*3/uL (0.1-1.0); MONO % 8.8 % (3.0-9.0); NEUT # 2.1 10*3/uL (2.3-7.9); NEUT % 50.9 % (47.0-73.0); NUCLEATED RED BLOOD CELL 0.0 % (0.0-0.0); NUCLEATED RED BLOOD CELL 0.0 10*3/uL (0.0-0.0); PLATELET COUNT AUTOMATED 125 10*3/uL (130-400); RED CELL DISTRI WIDTH 16.4 % (0-14.5)
[2025-08-08 22:03] LABS: ACT PARTIAL THROMBO TIME 26.2 SECONDS (20.0-32.1)
[2025-08-08 22:12] LABS: BUN 31.0 mg/dl (9-23)
[2025-08-08] MEDS ORDERED: SODIUM CHLORIDE 0.9% 1,000 ML IV ONE (22:20)
[2025-08-19] MEDS ORDERED: LOPRESSOR25 MG PO (12:05)
[2025-08-19] MEDS ORDERED: LIPITOR40 MG PO (12:06)
[2025-08-19] MEDS ORDERED: PLAVIX75 M1 PO (12:06)
[2025-08-19] MEDS ORDERED: LEXAPRO20 MG PO (12:06)
[2025-08-19] MEDS ORDERED: FLOMAX0.4 MG PO (12:06)
[2025-08-19] MEDS ORDERED: HYDRALAZINE HC100 MG PO (12:07)
[2025-08-19] MEDS ORDERED: CARDIZEM30 MG PO (12:07)
[2025-08-19] MEDS ORDERED: ROPINIROLE HYDRO1 MG PO (12:07)
[2025-08-19] MEDS ORDERED: OMEGA 3 1,0001 EACH PO (12:08)
[2025-08-25] MEDS ORDERED: APRESOLINE25 MG PEG (10:56)
== END 2025-08-09 02:20 | disposition home or self-care (01) ==
LOC: ED 21:25
PROVIDERS: Internal Medicine
DX: D50.9 Iron deficiency anemia, unspecified (principal); N17.9 Acute kidney failure, unspecified; R79.89 Other specified abnormal findings of blood chemistry; R05.9 Cough, unspecified; I48.91 Unspecified atrial fibrillation; Z20.822 Contact with and (suspected) exposure to COVID-19; Z86.73 Personal history of transient ischemic attack (TIA), and cerebral infarction without residual deficits; Z79.899 Other long term (current) drug therapy; Z79.82 Long term (current) use of aspirin; Z90.49 Acquired absence of other specified parts of digestive tract